=== PATIENT | female | born 1955 | race Caucasian/White ===

== ENCOUNTER → 2022-07-08 | Outpatient (REF) | payer MEDICARE | LOC: M SFHCDERM 17:02 | PROVIDERS: ATTEND Physician Assistant | DX: C44.319 Basal cell carcinoma of skin of other parts of face (principal) ==

== ENCOUNTER → 2024-03-06 | Outpatient (REF) | payer MEDICARE | LOC: M SFHCDERM 17:35 | PROVIDERS: ATTEND Physician Assistant | DX: C44.311 Basal cell carcinoma of skin of nose (principal) ==